=== PATIENT | male | born 1965 | race Two or more races ===

== ENCOUNTER 2022-03-31 05:00 | Emergency (ER) | payer OTHER ==
[~2022-03-31] VITALS: Ht 165.1 cm; Wt 72.6 kg
[2022-03-31] MEDS ORDERED: IOHEXOL 350 MG/ML 100ML IJ ONE (05:30)
[2022-03-31 07:26] LABS: Basophils # (auto) 0.1 10 ^3/uL (0-0.2); Basophils % (auto) 0.4 % (0.0-2.0); Eosinophils # (auto) 0.1 10 ^3/uL (0-0.8); Eosinophils % (auto) 0.5 % (0.0-7.0); Hematocrit 39.3 % (41.0-53.0); Hemoglobin 13.9 g/dL (13.5-17.5); Lymphocytes # (auto) 1.7 10 ^3/uL (0.4-5.4); Lymphocytes % (auto) 10.1 % (10.0-50.0); Mean Corpuscular Hemoglobin 33.1 pg (28.0-32.0); Mean Corpuscular Hgb Conc. 35.4 g/dL (32.0-36.0); Mean Corpuscular Volume 93.4 fL (80.0-100.0); Monocytes # (auto) 0.7 10 ^3/uL (0-1.3); Monocytes % (auto) 4.1 % (0.0-12.0); Neutrophils # (auto) 14.2 10 ^3/uL (1.6-8.6); Neutrophils % (auto) 84.9 % (37.0-80.0); Red Cell Distribution Width 13.3 % (11.8-14.3); White Blood Cell 16.7 10^3/uL (4.4-10.8)
[2022-03-31 07:45] LABS: Albumin 3.6 g/dL (3.4-5.0); Calcium 8.9 mg/dL (8.5-10.1); Potassium 3.9 mmol/L (3.5-5.1)
[2022-03-31 07:49] LABS: BUN/Creatinine Ratio 16.5; Bilirubin, Total 0.5 mg/dL (0.2-1.0); Total Protein 6.9 g/dL (6.4-8.2)
[2022-03-31] MEDS ORDERED: HYDROcodone-ACET 5/325MG TAB PO ONE (11:45)
[2022-03-31 12:31] VITALS: BP 162/105
== END 2022-03-31 12:40 | disposition short-term general hospital (02) ==
LOC: EDBD 05:00 → ER 05:00
DX: S22.43XA Multiple fractures of ribs, bilateral, initial encounter for closed fracture (principal); S10.93XA Contusion of unspecified part of neck, initial encounter; N40.0 Benign prostatic hyperplasia without lower urinary tract symptoms; E11.9 Type 2 diabetes mellitus without complications; I10 Essential (primary) hypertension; E78.5 Hyperlipidemia, unspecified; Z20.822 Contact with and (suspected) exposure to COVID-19; V43.52XA Car driver injured in collision with other type car in traffic accident, initial encounter; Y93.89 Activity, other specified; Y92.410 Unspecified street and highway as the place of occurrence of the external cause; Y99.8 Other external cause status
CPT/HCPCS: 36415; 71260; 72125; 74177; 80053; 83690; 84484; 85025; 87426; 93005; 99285; Q9967